=== PATIENT | female | born 1940 | race Caucasian/White ===

== ENCOUNTER 2017-11-29 18:37 | Emergency (ER) | payer MEDICARE ==
--- NOTE | 2017-11-29 18:57 | ED Physician Documentation ---
General Adult - HISTORIAN Historian: patient - HPI Additional Information: Magdi developed a headache last noc around midnight. Pain seems to be on the top of the head. No precipitating factor noted. Ibuprofen has not help. No numbness, weakness, VA changes. Has been having some nausea and vomiting. Has vomited several times today. Has not been able to keep anything down. No muscle aches. Has had a low grade fever for most of the day. Having some chill also. Has had some mild diarrhea. No blood in emesis or diarrhea noted. No abd pain. Has some mil allergy issue, right shoulder has been bothering her more then baseline. Onset: hours (19 hours go) Timing: still present - ROS CONST: fever, chills - PAST HX Past History: other (HTN) Other History: diabetes Type 2 Surgeries/Procedures: other (breast biopsy) - SOCIAL HX Smoking History: non-smoker Alcohol Use: none Drug Use: none - FAMILY HX Family History: No - VITAL SIGNS Vital Signs: Vital Signs Temp Pulse Resp BP Pulse Ox 188/74 03/04/15 01:30 <Karol Mast - Last Filed: 11/29/17 19:08> - HPI Chief Complaint: General Adult - VITAL SIGNS Vital Signs: Vital Signs Temp Pulse Resp BP Pulse Ox 99.2 F 92 H 22 179/72 91 L 11/29/17 18:40 11/29/17 18:40 11/29/17 18:40 11/29/17 18:40 11/29/17 18:40 <ROSLYN ALFORD - Last Filed: 11/29/17 21:16> - PAST HX Allergies/Adverse Reactions: Allergies Allergy/AdvReac Type Severity Reaction Status Date / Time No Known Allergies Allergy Verified 11/29/17 18:57 Progress - Progress Progress: Report Submission Date: Nov 29, 2017 8:04:30 PM CDT Patient Study Name: ARTEMIO LANDA Date: Nov 29, 2017 7:34:31 PM CDT Modality Type: CT\SR Gender: F Description: CT BRAIN W/O CONTRAST : 38 Institution: [facility] Physician: KAROL MAST CT head without contrast HISTORY Headache. TECHNIQUE Images through the brain were obtained without contrast. FINDINGS No mass, midline shift, obstructive hydrocephalous or acute intracranial hemorrhage is present. The ventricles and cortical sulci are slightly enlarged, consistent with age. No extra-axial fluid collection is identified. IMPRESSION No acute intracranial process. Electronically signed on Nov 29, 2017 8:04:30 PM CDT by: Marcelino Bruce Report Submission Date: Nov 29, 2017 8:12:59 PM CDT Patient Study Name: ARTEMIO LANDA Date: Nov 29, 2017 7:37:40 PM CDT Modality Type: DX Gender: F Description: SHOULDER : 38 Institution: [facility] Physician: ROSLYN ALFORD - Right shoulder, 3 views HISTORY Shoulder pain. FINDINGS Joint space narrowing is noted at the acromioclavicular joint. There is no fracture, dislocation or abnormal bone destruction. IMPRESSION Acromioclavicular osteoarthritis. No acute abnormality. Electronically signed on Nov 29, 2017 8:12:59 PM CDT by: Marcelino Bruce 2111, nausea relieved. Urine sp gr >1.030. IV failed. She drank 3 12 ounce glasses water. <ROSLYN ALFORD EUN - Last Filed: 11/29/17 21:16> ED Results Lab/Radiology - Lab Results Lab Results: Lab Results 11/29/17 11/29/17 19:25 19:25 WBC 10.30 K/ul K/ul (4.00-12.00) RBC 4.21 M/ul M/ul (3.90-5.20) Hgb 13.1 g/dL g/dL (12.0-16.0) Hct 39.1 % % (34.5-46.5) MCV 93.0 fl fl (80.0-100.0) MCH 31.1 pg pg (28.0-34.0) MCHC 33.5 g/dL g/dL (30.0-36.0) RDW 13.5 % % (11.3-14.3) Plt Count 259 K/mm3 K/mm3 (130-400) Neut % (Auto) 76.2 % % (39.0-79.0) Lymph % (Auto) 17.7 % % (16.0-50.0) [place] % (Auto) 3.5 % % (0.0-11.0) Eos % (Auto) 0.7 % % (0.0-6.8) Baso % (Auto) 0.6 (0.0-1.5) Neut # (Auto) 7.8 # k/uL H # k/uL (1.4-7.7) Lymph # (Auto) 1.8 # k/uL # k/uL (0.6-4.0) [place] # (Auto) 0.4 # k/uL # k/uL (0.0-0.9) Eos # (Auto) 0.1 # k/uL # k/uL (0.0-0.6) Baso # (Auto) 0.1 # k/uL # k/uL (0.0-0.5) Reactive Lymphs % 1.4 % % (0.0-5.0) Reactive Lymphs # 0.2 # k/uL # k/uL (0.0-0.8) Sodium 136 mmol/L mmol/L (136-145) Potassium 3.4 mmol/L L mmol/L (3.5-5.1) Chloride 98 mmol/L mmol/L (98-107) BUN 9 mg/dL mg/dL (7-17) Creatinine 0.50 mg/dL L mg/dL (0.52-1.04) Estimated Creat Clear 140 Est GFR ( Amer) > 60 (60 - ) Est GFR (Non-Af Amer) > 60 (60 - ) Glucose 194 mg/dL H mg/dL (74-106) Total Bilirubin 0.3 mg/dL mg/dL (0.2-1.3) AST 49 U/L H U/L (15-46) ALT 30 U/L U/L (13-69) Alkaline Phosphatase 87 U/L U/L (38-126) Total Protein 7.1 g/dL g/dL (6.3-8.2) Albumin 4.0 g/dL g/dL (3.5-5.0) - Orders Orders: ED Orders Category Date Time Status Place IV Lock 1T Care 11/29/17 19:[address] BRAIN W/O CONTRAST Stat Exams 11/29/17 Ordered SHOULDER 2 VIEWS OR MORE [RAD] Stat Exams 11/29/17 Ordered BLOOD CULTURE Stat Lab 11/29/17 Ordered CBC/PLATELET/DIFF Routine Lab 11/29/17 19:25 Completed CMP Routine Lab 11/29/17 19:25 Completed URINALYSIS Routine Lab 11/29/17 Uncollected Ondansetron HCl/Pf [Zofran 4 mg/2 ml] Med 11/29/17 19:58 Discontinued 4 mg IVP NOW ONE <ROSLYN ALFORD - Last Filed: 11/29/17 21:16> General Adult Physical Exam - PHYSICAL EXAM GENERAL APPEARANCE: mild distress EENT: eye inspection normal, ENT inspection normal, pharynx normal, no signs of dehydration NECK: normal inspection, thyroid normal, supple. No: lymphadenopathy, stiff neck RESPIRATORY: no resp distress, chest non-tender, breath sounds normal. No: wheezes, rales, rhonchi CVS: reg rate & rhythm, heart sounds normal, equal pulses, no murmur ABDOMEN: soft, no organomegaly, normal bowel sounds, no abdominal bruit, no distension BACK: normal inspection, no CVA tenderness SKIN: warm/dry, mottled NEURO: oriented X3, CN's nml as tested, motor nml, sensation nml, mood/affect nml, cognition normal <Karol Mast - Last Filed: 11/29/17 19:08> Discharge <Karol Mast - Last Filed: 11/29/17 19:08> Decision to Admit: NO Decision Time: 21:12 <ROSLYN ALFORD - Last Filed: 11/29/17 21:16> Clincal Impression: Headache Qualifiers: Headache type: unspecified Headache chronicity pattern: acute headache Intractability: not intractable Qualified Code(s): R51 - Headache Shoulder pain Qualifiers: Chronicity: chronic Laterality: right Qualified Code(s): M25.511 - Pain in right shoulder; G89.29 - Other chronic pain Referrals: Ariel Jones MD [Primary Care Provider] - 2 Days Condition: Good Disposition: 01 HOME, SELF-CARE
[2017-11-29 19:30] LABS: BASOPHILS % 0.6 (0.0-1.5); EOSINOPHILS % 0.7 % (0.0-6.8); MEAN CORPUSCULAR HEMOGLOBIN 31.1 pg (28.0-34.0); MONOCYTES % 3.5 % (0.0-11.0); NEUTROPHILS # 7.8 # k/uL (1.4-7.7)
[2017-11-29] MEDS: ONDANSETRON HCL/PF 4 MG/ 2ML VIAL IVP ONE (20:06)
[2017-11-29 20:07] LABS: eGFR (African) > 60; eGFR (Non-African) > 60
[2017-11-29] MEDS: ACETAMINOPHEN 500 MG TABLET PO ONE (20:15)
[2017-11-29 22:43] VITALS: BP 160/59
[2017-11-29] MEDS: 0.9 % SODIUM CHLORIDE 1,000 ML IV ONE (22:44)
[2017-11-29 23:12] LABS: COLOR,URINE YELLOW (YELLOW)
[2017-11-29 23:13] LABS: APPEARANCE,URINE CLOUDY (CLEAR); OCCULT BLOOD,URINE NEGATIVE (NEGATIVE); PH URINE 5.5 (5.0 - 8.0); UROBILINOGEN URINE 0.2 Eu (0.2-1.0)
--- NOTE | 2017-11-30 06:00 | Diagnostic Imaging Report ---
ROSLYN ALFORD [facility] [address] [facility] [address] [address] Report Submission Date: Nov 29, 2017 8:12:59 PM CDT Patient Study Name: ARTEMIO LANDA Date: Nov 29, 2017 7:37:40 PM CDT Modality Type: DX Gender: F Description: SHOULDER : 38 Institution: [facility] Physician: ROSLYN ALFORD Right shoulder, 3 views HISTORY Shoulder pain. FINDINGS Joint space narrowing is noted at the acromioclavicular joint. There is no fracture, dislocation or abnormal bone destruction. IMPRESSION Acromioclavicular osteoarthritis. No acute abnormality. Electronically signed on Nov 29, 2017 8:12:59 PM CDT by: Marcelino PINEDA
--- NOTE | 2017-11-30 06:01 | Diagnostic Imaging Report ---
KAROL MAST [facility] [address] [facility] [address] [place] [address]. [id number] Report Submission Date: Nov 29, 2017 8:04:30 PM CDT Patient Study Name: ARTEMIO LANDA Date: Nov 29, 2017 7:34:31 PM CDT Modality Type: CT\SR Gender: F Description: CT BRAIN W/O CONTRAST : 38 Institution: [facility] Physician: KAROL MAST CT head without contrast HISTORY Headache. TECHNIQUE Images through the brain were obtained without contrast. FINDINGS No mass, midline shift, obstructive hydrocephalous or acute intracranial hemorrhage is present. The ventricles and cortical sulci are slightly enlarged, consistent with age. No extra-axial fluid collection is identified. IMPRESSION No acute intracranial process. Electronically signed on Nov 29, 2017 8:04:30 PM CDT by: Marcelino PINEDA
== END 2017-11-29 21:25 | disposition home or self-care (01) ==
LOC: ED 18:37
DX: M25.511 Pain in right shoulder (principal); G89.29 Other chronic pain; R51 Headache
CPT/HCPCS: 70450; 73030; 80053; 81002; 85025; 87040; J2405; 96374; 99284; S1016

== ENCOUNTER 2017-12-07 15:14 | Outpatient (CLI) | payer MEDICARE | END 2017-12-07 15:16 | LOC: LAB 15:14 | PROVIDERS: ATTEND Family Medicine | DX: E78.1 Pure hyperglyceridemia (principal); E11.9 Type 2 diabetes mellitus without complications | CPT/HCPCS: 36415; 80061; 83036 ==

== ENCOUNTER 2018-06-12 11:26 | Outpatient (CLI) | payer MEDICARE ==
[2018-06-12 12:04] LABS: eGFR (Non-African) > 60
== END 2018-06-12 11:28 ==
LOC: LAB 11:26
PROVIDERS: ATTEND Family Medicine
DX: E11.9 Type 2 diabetes mellitus without complications (principal); E78.00 Pure hypercholesterolemia, unspecified; I10 Essential (primary) hypertension
CPT/HCPCS: 36415; 80053; 80061; 83036